=== PATIENT | female | born 1995 | race Caucasian/White ===

== ENCOUNTER 2021-01-25 17:06 | Outpatient (CLI) | payer OTHER, SELFPAY ==
--- NOTE | ~2021-01-25 | XR_ITS ---
XR shoulder RT min 2V 01/25/2021 18:06 Indication: Right shoulder pain after fall Procedure: 4 views right shoulder Comparison: No prior studies for comparison. Findings: No fracture, subluxation or dislocation. There is anatomic alignment of the right shoulder. No significant soft tissue abnormality. No foreign body. Impression: 1: No significant bone or joint abnormality. Reviewed, dictated and finalized at location A. Impression: 1: No significant bone or joint abnormality.
== END 2021-01-25 17:07 | disposition home or self-care (01) ==
LOC: CHSIMG 17:09
PROVIDERS: PCP Internal Medicine; Visit Provider Internal Medicine
DX: M25.511 Pain in right shoulder (principal)
CPT/HCPCS: 73030

== ENCOUNTER 2021-02-09 07:24 | Outpatient (CLI) | payer OTHER, SELFPAY ==
--- NOTE | ~2021-02-09 | MR_ITS ---
EXAMINATION: MR shoulder RT wo con DATE: 02/09/2021 09:33 INDICATION: Right shoulder pain. TECHNIQUE: Magnetic resonance imaging (MRI) of the right shoulder was performed without intravenous c ontrast. Sequences included axial PD-weighted FS FSE, coronal oblique PD-weighted FS FSE and T2-weigh lam FS FSE, and sagittal oblique T2-weighted FS FSE and T1-weighted FSE. COMPARISON: Right shoulder radiographs 01/25/2021 FINDINGS: Coracoacromial arch: The acromion undersurface is curved in morphology (type II). There is bone marrow edema in the acromi on, likely stress reaction. Acromioclavicular joint is normal. There is mild subacromial/subdeltoid b ursitis. Rotator cuff: There is mild supraspinatus and infraspinatus tendinopathy. There is a partial-thickness, bursal-side d tear of anterior supraspinatus tendon measuring 3 mm anterior to posterior by 1 mm proximal to dist al by 50% tendon thickness. Teres minor tendon is normal. Subscapularis tendon is normal. There is no asymmetric fatty atrophy of the rotator cuff muscle bellies. Biceps tendon and glenoid labrum: Biceps tendon is in bicipital groove. Intra-articular biceps tendon is normal. There is a tear of gle noid labrum from 12:00 to 1:00 (SLAP tear) with an 11 x 5 x 7 mm paralabral cyst. Fluid: There is no glenohumeral joint effusion. Bones/cartilage: Glenoid cartilage is normal. Humeral head cartilage is normal. IMPRESSION: 1. Small partial-thickness tear of anterior supraspinatus tendon. 2. SLAP tear with paralabral cyst. 3. Bone marrow edema in acromion, likely stress reaction. 4. Mild subacromial/subdeltoid bursitis. Reviewed, dictated and finalized at location A. CAL VOUCHER CLERK
== END 2021-02-09 07:25 | disposition home or self-care (01) ==
LOC: CHSIMG 07:25
PROVIDERS: PCP Internal Medicine; Visit Provider Internal Medicine
DX: M25.511 Pain in right shoulder (principal)
CPT/HCPCS: 73221

== ENCOUNTER 2021-06-24 07:45 | Outpatient (RCR) | payer OTHER, SELFPAY ==
--- NOTE | 2021-06-24 07:55 | PTOPEVAL ---
Thank you for referring Yenni Sebastian to [facility].? The patient is scheduled to be seen for therapy? __1__x/week for 4 visits. Please review, sign, date and return this plan of care YONNY. I agree with and certify that the following plan of care is medically necessary. Referring Physician Date Admitting Provider: Attending Provider: Jonh Paul, Referring Provider: *PT Outpatient Evaluation Start: 06/24/21 06:48 Freq: Status: Active Protocol: Document 06/24/21 07:04 STELLA (Rec: 06/24/21 07:52 STELLA [email or web address]) Therapy Assessment Status Assessment Status Assessment Status Evaluation Evaluation Information Problem Diagnosis s/p labral repair, right Onset 04/16/21 Subjective Information Pt. reports she underwent Query Text:As Reported By Patient/ surgery on 04/16/21. She Family reports that she was in a sling for 6 weeks. She has been doing basic range of motion exercise on her own. she report that pain is minimal. she notes pain mostly with sleeping on the right side. She reports that she was released to begin weight lifting. She reports that her goal is to be able to return to weight lifting in the gym and return to recreational volleyball. Prior Level of Function Activity Level (Last 3 Months) Hand Dominance Right Activity of Daily Living Ability Independent Indoor/Home Mobility Independent Community Mobility Independent Stairs Ability Independent Functional Cognition (Planning, Shopping Independent , Taking Medications) Cooking Yes Cleaning Yes Laundry Yes Shopping Yes Driving Yes Pain Assessment Timing of Pain Assessment Timing of Pain Assessment Pre-Treatment Self Report Self Report Pain Level 0 Pain Score Pain Score 0: Self Report Upper Extremity Range of Motion General Upper Extremity Range of Motion Gross Upper Extremity Range of Motion -right shoulder flexion AROM Comments 142 degrees -left shoulder flexion AROM 162 degrees -Pt. presents with no deficit on the right with combined IR and ex
== END 2021-07-15 15:31 | disposition home or self-care (01) ==
LOC: CHSPT 07:45
PROVIDERS: PCP Internal Medicine; Visit Provider Orthopaedic Surgery Hand Surgery
DX: S43.431D Superior glenoid labrum lesion of right shoulder, subsequent encounter (principal)
CPT/HCPCS: 97110; 97140; 97161

== ENCOUNTER 2022-02-17 12:51 | Outpatient (CLI) | payer OTHER, SELFPAY ==
[2022-02-17 13:56] LABS: HIV 1 P24 AG Negative (Negative); HIV 1/2 AB Negative (Negative)
[2022-02-20 11:49] LABS: Hepatitis B Surface Antigen Nonreactive (Nonreactive); Hepatitis C Virus Antibody Nonreactive (Nonreactive)
[2022-02-20 14:04] LABS: RPR Screen Non-Reactive (Non-Reactive)
== END 2022-02-17 12:52 | disposition home or self-care (01) ==
LOC: CHSLAB 12:52
PROVIDERS: PCP Internal Medicine; Visit Provider Obstetrics & Gynecology
DX: Z20.2 Contact with and (suspected) exposure to infections with a predominantly sexual mode of transmission (principal)
CPT/HCPCS: 36415; 86592; 86703

== ENCOUNTER 2023-04-25 10:52 | Emergency (ER) | payer OTHER, SELFPAY ==
[2023-04-25 10:55] VITALS: BP 144/99; PULSE 100; RESP 16; TEMP 36.2; O2SAT 97
--- NOTE | 2023-04-25 11:39 | ECG_ITS ---
Measurements Intervals [place] Rate: 59 P: 61 UT: 180 QRS: 93 QRSD: 100 T: 59 QT: 419 QTc: 416 Interpretive Statements SINUS BRADYCARDIA WITH MARKED SINUS ARRHYTHMIA RIGHT AXIS DEVIATION BORDERLINE ECG NO PREVIOUS ECG AVAILABLE FOR COMPARISON Electronically Signed On 04-25-2023 12:56:33 LOCAL HAZMAT DRIVER by Chente Gardiner D.O.
--- NOTE | 2023-04-25 11:39 | ED.GENADULT ---
HPI - General Adult General Chief complaint: Upper Respiratory Infection Stated complaint: covid + Time Seen by Provider: 04/25/23 10:54 History of Present Illness HPI narrative: Healthy 28yo woman presents with new onset pain in her chest wall with deep inspiration, cough, or movement, started this morning. Has been sick with congestion and cough and intermittent fever for the past 3 days. Tested positive for CoViD on a home testing kit. No productive cough, dyspnea, leg pain or swelling. Related Data Home Medications Medication Instructions Recorded Confirmed levonorgestrel 14 mcg/24 hrs (3 1 device intrauterine ONCE 01/19/23 04/25/23 yrs) 13.5 mg intrauterine device (Britni) Allergies Allergy/AdvReac Type Severity Reaction Status Date / Time amoxicillin [From Augmentin] Allergy Mild Unknown Verified 04/25/23 10:59 clavulanic acid Allergy Mild Unknown Verified 04/25/23 10:59 [From Augmentin] Review of Systems Review of Systems: All systems reviewed & are unremarkable except as noted in HPI and below Constitutional: Constitutional: Reports chills, Reports fatigue and Reports fever(s) Eyes: Eyes: Denies change in vision ENT: Denies dysphagia and Denies dizziness Cardiovascular: Cardiovascular: Reports chest pain Respiratory: Respiratory: Reports cough, Denies dyspnea and Denies wheezing Gastrointestinal: Gastrointestinal: Denies abdominal pain PMFSH Surgical History Surgical History Gum inflammation Hx of shoulder surgery [place] teeth removed Family History Family History Father Diabetes mellitus Family history of cardiovascular disease Cerebrovascular accident Carcinoma of colon Family history of coronary artery disease Grandparent Diabetes mellitus Family history of malignant neoplasm of breast Mother Patient's mother is in good health Social History Social History Smoking status: Never smoker Second hand tobacco smoke exposure: No Alcohol intake: current Substance use: never Lack of Transportation: No Lack of Food: Never True Current Housing: I Have Housing Concerned About Future Housing: No Difficulty Paying Gas/Electric Bills: No Difficulty Paying for Meds: No Currently Unemployed: No Occupation/Education: occupation Gender identity (if verbalized by the patient): Female Exam Const: General: healthy appearing, no acute distress and alert Nutritional Appearance: well nourished Orientation/consciousness: patient oriented x3 Eyes: Conjunctivae: conjunctivae normal Chest: Chest palpation & inspection: tenderness Other: parasternal area tender to light palpation Resp: Effort & Inspection: normal respiratory effort and not labored Auscultation: clear to auscultation bilaterally and no wheezes Cardio: Rate: regular rate Rhythm: regular rhythm Heart sounds: no murmurs GI: Inspection: non-distended Skin: General skin exam: normal color, no jaundice and no pallor Extrem: General: no clubbing, cyanosis or edema Course Vital Signs Vital signs: Vital Signs Temperature 36.2 C L 04/25/23 10:55 Pulse Rate 100 04/25/23 10:55 Respiratory Rate 16 04/25/23 10:55 Blood Pressure 144/99 H 04/25/23 10:55 Pulse Oximetry 97 04/25/23 10:55 Oxygen Delivery Room Air 04/25/23 10:55 Temperature 36.2 C L 04/25/23 10:55 Pulse Rate 100 04/25/23 10:55 Respiratory Rate 16 04/25/23 10:55 Blood Pressure 144/99 H 04/25/23 10:55 Pulse Oximetry 97 04/25/23 10:55 Oxygen Delivery Room Air 04/25/23 10:55 Medical Decision Making MDM Narrative Medical decision making narrative: musculoskeletal chest wall pain, with movement, cough, breathing DDx likely acute viral syndrome with acute costochondritis. No evidence of acute coronary syn
[2023-04-25] MEDS: KETOROLAC (*BKC) 60 MG/2 ML VIAL IM (11:56)
[2023-04-25 12:17] VITALS: BP 117/75; PULSE 82; RESP 20; O2SAT 98
== END 2023-04-25 12:17 | disposition home or self-care (01) ==
PROVIDERS: Emergency Provider Emergency Medicine; PCP Internal Medicine
DX: U07.1 COVID-19 (principal); M94.0 Chondrocostal junction syndrome [Tietze]; Z79.899 Other long term (current) drug therapy
CPT/HCPCS: 93005; 96372; 99283; J1885

== ENCOUNTER 2025-02-20 12:09 | Outpatient (CLI) | payer OTHER, SELFPAY | END 2025-02-20 12:10 | disposition home or self-care (01) | PROVIDERS: PCP Internal Medicine; Visit Provider Obstetrics & Gynecology | DX: O26.859 Spotting complicating pregnancy, unspecified trimester (principal); Z3A.00 Weeks of gestation of pregnancy not specified | CPT/HCPCS: 36415; 84702; 86850; 86900; 86901 ==

== ENCOUNTER 2025-02-22 13:27 | Outpatient (CLI) | payer OTHER, SELFPAY ==
--- OUTSIDE RECORDS SUMMARY | 2025-02-22 13:30 | XMS_ITS | Clinical Summary ---
Author Organization [facility] Address [address] [place] [address] Care Team Providers Care Editor Managing Director Name Role Phone Erich Jim MD Primary Care Provider [phone] Source Comments [facility],non-owned Affiliates and Associated Physician Practices is amultiple site organization consisting of ambulatory clinics and hospital sitesin [place], [place], [place] and [place]. This disclosure is being madepursuant to the Care Everywhere program and may not contain all information available regarding this patient. Last updated 17.[facility] Allergies Active Allergy Reactions Criticality Noted Date Comments Amoxicillin Unknown 11/11/2020 Augmentin Unknown 04/27/2010 As child Medications * Be aware that medications may not be up to date on this document. Alwaysverify current medications with the patient. norgestrel-ethi nyl estradiol (CRYSELLE-28) 0.3-30 MG-MCG tablet Take 1 Tab by mouth once daily 02/18/20 25 Discontinu ed(Tx Complete) Encounters Date Type Department Care Team Description 02/17/2025 9:50 AM CERTIFICATION OFFICER visit [facility] [address] [place] [address] Jocelyn Jim MD GA: [id number] 02/17/2025 8:45 AM CERTIFICATION OFFICER Procedure visit [facility] [address] [place] [address] Spotting affecting in first trimester (HCC) 02/17/2025 Travel from Last 3 Months Family History Medical History Relation Name Comments CAD (Coronary Artery Disease) Father CVA Father Cancer - Colon Father Diabetes - Type 2 Father htn Father Relation Name Status Comments Brother Alive Father Alive Mother Alive Social History Tobacco Use Types Packs/Day Years Used Date Smoking Tobacco: Never Smokeless Tobacco: Never Alcohol Use Standard Drinks/Week Comments Never 0 (1 standard drink = 0.6 oz pur e alcohol) rarely PHQ-2 Answer Date Recorded Patient Health Questionnaire-2 Score 0 02/16/2025 AUDIT-C Answer Date Recorded Q1: How often do you have a drink containing alcohol? Never 02/17/2025 Q2: How many drinks containi ng alcohol do you have on a typical day when you are drinking? Patient does not drink Q3: How often do you have si x or more drinks on one occasion? Less than monthly 02/17/2025 Estimated Date of Delivery Comme nts Yes 10/16/2025 Based on last me nstrual period of 01/09/2025 Sex and Gender Information Value Date Recorded Sex Assigned at Not on file Legal Sex Female 9:51 AM CERTIFICATION OFFICER Gender Identity Not on file Sexual Orientation Not on file Last Filed Vital Signs Vital Sign Reading Time Taken Comments Blood Pressure 116/72 02/17/2025 9:12 AM CERTIFICATION OFFICER Pulse 65 08/08/2018 11:15 AM CDT Temperature 37.1 C (98.8 F) 08/08/2018 11:15 AM CDT Respiratory Rate 16 08/08/2018 11:15 AM CDT Oxygen Saturation 97% 08/08/2018 11:15 AM CDT Inhaled Oxygen Concentration - - Weight 84.4 kg (186 lb) 02/17/2025 9:12 AM CERTIFICATION OFFICER Height 177.8 cm (5' 10) 02/17/2025 9:12 AM CERTIFICATION OFFICER Body Mass Index 26.69 02/17/2025 9:12 AM CERTIFICATION OFFICER Plan of Treatment Health Maintenance Due Date Last Done Comments HIV SCREENING 2010 HEPATITIS C SCREENING 01/06/2013 DTAP/TDAP/TD VACCINES (1 - Tdap) 2014 HEPATITIS B VACCINE (1 of 3 - 19+ 3-dose series) 2014 Cervical Cancer Screening 01/12/2016 PAP SMEAR 01/12/2016 HPV VACCINE (1 - 3-dose SCDM series) 2022 COVID-19 VACCINE ( - 2024-2 6 season) 2024 03/29/2021, 08/14/2020, 07/24/2020 INFLUENZA VACCINE (#1) 2024 04/26/2020 PAP with HPV 2025 OB-TDAP CURRENT 07/17/20252020, 10/27/2009 ZOSTER VACCINE (1 of 2) 2045 DEPRESSION SCREENING Completed 02/17/2025 HIB VACCINE Aged Out No longer eligi ble based on patient's age to complete this topic MENINGOCOCCAL (Group B) VACCINE SHARED DECISION-MAKING Aged Out No longer eligible based on patient's age to complete this topic MENINGOCOCCAL GROUPS A/C/Y/W VACCINE Aged Out No longer eligible b ased on patient's age to complete this topic PNEUMOCOCCAL VACCINE Aged Out No long er eligible based on patient's age to complete this topic Respiratory Syncytial Virus (RSV) Vaccine Pt: or over 60 yrs (No Doses Required) Completed Procedures Procedure Name Priority Date/Time Associated Diagnosis Comments SONOGRAM - COMPLETE Routine 02/17/2025 9 :08 AM CERTIFICATION OFFICER Spotting affecting in first trimester (HCC) from Last 3 Months Results * SONOGRAM - COMPLETE (02/17/2025 9:08 AM CERTIFICATION OFFICER) Anatomical Region Laterality Modality Other Narrative 02/17/2025 9:08 AM CERTIFICATION OFFICER Omayra James 02/17/2025 9:08 AM Ultrasound is complete us Jocelyn Jim MD [facility] ORDERABLES Final Result from Last 3 Months Insurance Care Teams Editor Managing Director Relationship Specialty Start Date End Date Erich Jim MD [address] [place] [id number] PCP - General Internal Medicine 02/17/25
== END 2025-02-22 13:28 | disposition home or self-care (01) ==
LOC: ANHLAB 13:28
PROVIDERS: PCP Internal Medicine; Visit Provider Obstetrics & Gynecology
DX: O26.859 Spotting complicating pregnancy, unspecified trimester (principal); Z3A.00 Weeks of gestation of pregnancy not specified
CPT/HCPCS: 36415; 84702